=== PATIENT | male | born 1940 | race Caucasian/White ===

== ENCOUNTER 2020-01-22 09:21 | Emergency (ER) | payer MEDICARE ==
[2020-01-22] MEDS ORDERED: Sodium Chloride 0.9% 10 ML Syringe FLUSH PRN (09:43)
--- NOTE | 2020-01-22 09:43 | EDM.PDOC ---
ED HPI GENERAL MEDICAL PROBLEM - General Stated Complaint: DOESNT FEEL WELL Time Seen by Provider: 01/22/20 09:50 Source of Information: Reports: Patient, Family History Limitations: Reports: No Limitations - History of Present Illness INITIAL COMMENTS - FREE TEXT/NARRATIVE: Patient presented to the ED because he is not feeling well. He has a poor appetite and feels weak. Denies any fever,chills,cough/cold. There is no N/V/D. No urinary symptoms. - Related Data Allergies Allergy/AdvReac Type Severity Reaction Status Date / Time No Known Allergies Allergy Verified 01/22/20 09:42 Home Meds: Home Meds . [Unable to Verify Home Med List] 01/22/20 [History] ED ROS GENERAL - Review of Systems Review Of Systems: See Below Constitutional: Reports: No Symptoms HEENT: Reports: No Symptoms Respiratory: Reports: No Symptoms Cardiovascular: Reports: No Symptoms Endocrine: Reports: No Symptoms GI/Abdominal: Reports: No Symptoms : Reports: No Symptoms Musculoskeletal: Reports: No Symptoms Skin: Reports: No Symptoms Neurological: Reports: No Symptoms Psychiatric: Reports: No Symptoms Hematologic/Lymphatic: Reports: No Symptoms ED EXAM, GENERAL - Physical Exam Exam: See Below Exam Limited By: No Limitations General Appearance: Alert, No Apparent Distress Ears: Normal External Exam, Normal Canal, Hearing Grossly Normal Nose: Normal Inspection, Normal Mucosa Throat/Mouth: Normal Inspection, Normal Lips, Normal Teeth Head: Atraumatic, Normocephalic Neck: Normal Inspection, Supple, Non-Tender, Full Range of Motion Respiratory/Chest: No Respiratory Distress, Lungs Clear, Normal Breath Sounds Cardiovascular: Normal Peripheral Pulses, Regular Rate, Rhythm, No Edema, No Gallop, No JVD, No Murmur, No Rub GI/Abdominal: Normal Bowel Sounds, Soft, Non-Tender, No Organomegaly Back Exam: Normal Inspection, Full Range of Motion Extremities: Normal Inspection, Normal Range of Motion, Non-Tender Neurological: Alert, Oriented, CN II-XII Intact, Normal Cognition, Normal Gait Psychiatric: Normal Affect, Normal Mood Skin Exam: Warm, Intact, Normal Color, No Rash Course - Vital Signs Text/Narrative:: Labs/EKG/CXR was reviewed with the patient NS 1 L bolus in 2 hrs Last Recorded V/S: Last Vital Signs Temp 36.4 C 01/22/20 09:43 Pulse 73 01/22/20 09:43 Resp 14 01/22/20 09:43 BP 157/91 H 01/22/20 09:43 Pulse Ox 97 01/22/20 09:43 - Orders/Labs/Meds Orders: Active Orders 24 hr Category Date Time Status EKG Documentation Completion [RC] ASDIRECTED Care 01/22/20 09:44 Active Sodium Chloride 0.9% [Saline Flush] Med 01/22/20 09:43 Active 10 ml FLUSH ASDIRECTED PRN Saline Lock Insert [OM.PC] Routine Oth 01/22/20 09:43 Ordered EKG 12 Lead [EK] Routine Ther 01/22/20 09:44 Ordered Medication Orders Sodium Chloride (Saline Flush) 10 ml FLUSH ASDIRECTED PRN PRN Reason: Keep Vein Open Labs: Laboratory Tests 01/22/20 01/22/20 01/22/20 Range/Units 09:50 09:50 09:50 WBC 5.9 (4.5-12.0) X10-3/uL RBC 3.66 L (4.30-5.75) x10(6)uL Hgb 11.1 L (13.5-17.8) g/dL Hct 33.3 (30.0-51.3) % MCV 90.9 (80-96) fL MCH 30.2 (27.7-33.6) pg MCHC 33.2 (32.2-35.4) g/dL RDW 14.5 (11.5-15.5) % Plt Count 203 (125-369) X10(3)uL MPV 8.7 (7.4-10.4) fL Neut % (Auto) 69.3 (46-82) % Lymph % (Auto) 20.6 (13-37) % [place] % (Auto) 8.6 (4-12) % Eos % (Auto) 1 (1.0-5.0) % Baso % (Auto) 1 (0-2) % Neut # (Auto) 4.0 (1.6-8.3) # Lymph # (Auto) 1.2 (0.6-5.0) # [place] # (Auto) 0.5 (0.0-1.3) # Eos # (Auto) 0.1 (0.0-0.8) # Baso # (Auto) 0.0 (0.0-0.2) # Sodium 130 L (135-145) mmol/L Potassium 4.1 (3.5-5.3) mmol/L Chloride 94 L (100-110) mmol/L Carbon Dioxide 22 (21-32) mmol/L BUN 25 H (7-18) mg/dL Creatinine 1.1 (0.70-1.30) mg/dL Est Cr Clr Drug Dosing TNP Estimated GFR (MDRD) > 60 (>60) BUN/Creatinine Ratio 22.7 H (9-20) Glucose 93 (80-116) mg/dL Calcium 9.0 (8.6-10.2) mg/dL Total Bilirubin 1.4 H (0.1-1.3) mg/dL AST 57 H (5-25) IU/L ALT 102 H (12-36) U/L Alkaline Phosphatase 134 H (56-112) IU/L Troponin I 6.6 (4.0-60.3) pg/mL Total Protein 7.3 (6.0-8.0) g/dL Albumin 3.4 (3.2-4.6) g/dL Globulin 3.9 g/dL Albumin/Globulin Ratio 0.9 Meds: Medications Generic Name Dose Route Start Last Admin Trade Name Freq PRN Reason Stop Dose Admin Sodium Chloride 10 ml 01/22/20 09:43 Saline Flush FLUSH ASDIRECTED PRN Keep Vein Open Departure - Departure Time of Disposition: 12:30 Disposition: Home, Self-Care 01 Condition: Good Clinical Impression: Dehydration - Discharge Information Instructions: Dehydration, Elderly, [id number] Referrals: Kt Francois MD [Primary Care Provider] - Additional Instructions: please read discharge instructions on dehydration increase oral fluids to 2-3 liters a day follow up as needed Sepsis Event Note (ED) - Focused Exam Vital Signs: Vital Signs Temp Pulse Resp BP Pulse Ox 01/22/20 09:43 36.4 C 73 14 157/91 H 97 - My Orders Last 24 Hours: My Active Orders 01/22/20 09:43 Sodium Chloride 0.9% [Saline Flush] 10 ml FLUSH ASDIRECTED PRN Saline Lock Insert [OM.PC] Routine 01/22/20 09:44 EKG Documentation Completion [RC] ASDIRECTED EKG 12 Lead [EK] Routine - Assessment/Plan Last 24 Hours: My Active Orders 01/22/20 09:43 Sodium Chloride 0.9% [Saline Flush] 10 ml FLUSH ASDIRECTED PRN Saline Lock Insert [OM.PC] Routine 01/22/20 09:44 EKG Documentation Completion [RC] ASDIRECTED EKG 12 Lead [EK] Routine
--- NOTE | 2020-01-22 10:41 | CR ---
INDICATION: Cough. CHEST ONE VIEW: An AP upright portable view of the chest was obtained 01/22/20 - no comparison. Chest is rotated to the right. The heart did not appear grossly enlarged. The aorta is mildly tortuous with calcification in the arch. Overlying EKG leads are noted. Somewhat increased pulmonary markings are noted in the suprahilar area and hilar area on the right raising question of patchy pneumonia, possibly on the basis of aspiration. This should be correlated clinically. No gross consolidating pneumonia or effusion was identified. Apical pleural calcifications are noted compatible with pleural fibrosis bilaterally. Somewhat diminished bone density may be present raising question of osteoporosis. Scoliosis is difficult to exclude in the spine with hypertrophic degenerative changes of moderate degree also present. Lungs appear to be somewhat hyperaerated. IMPRESSION: 1. Increased markings on the right raise question of patchy bronchopneumonia possibly on the basis of aspiration, but should be correlated clinically. 2. ASD aorta. 3. Possible osteoporosis. 4. 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 MTDD
[2020-01-22] MEDS ORDERED: Sodium Chloride 0.9% 1,000 ML IV SCH (14:00)
== END 2020-01-22 12:35 | disposition home or self-care (01) ==
LOC: FB.ED 09:21
DX: E86.0 Dehydration (principal)
CPT/HCPCS: 36415; 71045; 80053; 84484; 85025; 93005; 96360; 96361; 99285; J7030

== ENCOUNTER 2020-02-19 17:20 | Observation (INO) | payer MEDICARE ==
[2020-02-19] MEDS ORDERED: Sodium Chloride 0.9% 10 ML Syringe FLUSH PRN (18:23)
[2020-02-19] MEDS ORDERED: Dextrose 5%-Lactated Ringers 1,000 ML IV SCH (18:30)
--- NOTE | 2020-02-19 19:06 | EDM.PDOC ---
ED HPI GENERAL MEDICAL PROBLEM - General Chief Complaint: General Stated Complaint: I was confused about text messages on my cell phone Time Seen by Provider: 02/19/20 18:30 Source of Information: Reports: Patient, Old Records History Limitations: Reports: No Limitations - History of Present Illness INITIAL COMMENTS - FREE TEXT/NARRATIVE: Luis returns to [facility] ED by EMS following concerns for cell phone messages that he had "40 unanswered text messages" read upon awakening from a nap. He was unable to retrieve any messages, and became alarmed for safety. Upon arrival, he is alert, orientated to person, place, month, year, and time of day. He appears disheveled, with some food spills on his overshirt. His fingernails and toenails are curled with debris on all extremities. He lives alone, has neighbors assist with transportation to do limited shopping, and does talk on the telephone. 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 He has not seen a physcian in over a year. - Related Data Allergies Allergy/AdvReac Type Severity Reaction Status Date / Time No Known Allergies Allergy Verified 02/19/20 17:32 Home Meds: Home Meds . [Unable to Verify Home Med List] 01/22/20 [History] Past Medical History - Past Health History Medical/Surgical History: Denies Medical/Surgical History Other Cardiovascular History: Pt is unclear of past medical history but was on metoprolol at one time Neurological History: Reports: Other (See Below) Other Neuro History: PATIENT STATES "IM CONFUSED" - Infectious Disease History Other Infectious Disease History: THINKS HE MIGHT HAVE HAD CHICKEN POX KID - Past Surgical History Head Surgeries/Procedures: Reports: None Neurological Surgical History: Reports: None Dermatological Surgical History: Reports: None Social & Family History - Caffeine Use Caffeine Use: Reports: None ED ROS GENERAL - Review of Systems Review Of Systems: See Below Constitutional: Reports: Malaise HEENT: Reports: No Symptoms Respiratory: Reports: No Symptoms Cardiovascular: Reports: No Symptoms Endocrine: Reports: No Symptoms GI/Abdominal: Reports: No Symptoms : Reports: Frequency, Incontinence Musculoskeletal: Reports: Muscle Stiffness Skin: Reports: No Symptoms Neurological: Reports: Confusion Psychiatric: Reports: Confusion Hematologic/Lymphatic: Reports: No Symptoms Immunologic: Reports: No Symptoms ED EXAM, GENERAL - Physical Exam Exam: See Below Exam Limited By: No Limitations General Appearance: Alert, WD/WN, No Apparent Distress, Thin Eye Exam: Bilateral Eye: EOMI, Normal Inspection, PERRL Ears: Normal External Exam Nose: Normal Inspection Throat/Mouth: No Airway Compromise, Other (caried teeth, chronic gingivitis) Head: Normocephalic Neck: Normal Inspection, Supple, Non-Tender Respiratory/Chest: Lungs Clear, Chest Non-Tender Cardiovascular: Regular Rate, Rhythm, No Murmur GI/Abdominal: Normal Bowel Sounds, Soft, Non-Tender, No Organomegaly, No Distention, No Mass (Male) Exam: No Hernia, Normal Inspection, Normal Prostate Rectal (Males) Exam: Normal Exam, Normal Rectal Tone, Prostate Normal Back Exam: Normal Inspection Extremities: Limited Range of Motion Neurological: Alert, Oriented, CN II-XII Intact, No Motor/Sensory Deficits, Slow to Respond, Other (latency) Psychiatric: Flat Affect Skin Exam: Other (debris of hands and feet with deformed nails from neglect) Lymphatic: No Adenopathy Course - Vital Signs Text/Narrative:: Following assessment, an IV was started in the RUE, and 2 L of D5LR was administered over the next 3 hours; following screening lab work noted improvement in LFTs, no change in CBC, Covid 19 screen NEG. A noncontrast Head CT noted age related changes, no findings for CVA or hemorrhage, and no space occupying lesion. Following discussion with patient in the absence of any relatives available, he will be admitted to Observation. A Social Service consult for services should be considered in the am. Last Recorded V/S: Last Vital Signs Temp 35.1 C L 02/19/20 17:20 Pulse 88 02/19/20 17:20 Resp 18 02/19/20 17:20 BP 154/92 H 02/19/20 17:20 Pulse Ox 100 02/19/20 17:20 - Orders/Labs/Meds Orders: Active Orders 24 hr Category Date Time Status Patient Status Manage Transfer [TRANSFER] Routine ADT 02/19/20 21:04 Ordered Head wo Cont [CT] Urgent Exams 02/19/20 19:12 Taken DRUG SCREEN, URINE ALERE [URCHEM] Stat Lab 02/19/20 18:22 Ordered UA W/MICROSCOPIC [URIN] Stat Lab 02/19/20 18:22 Ordered Dextrose 5%-Lactated Ringers 1,000 ml Med 02/19/20 18:30 Active IV ASDIRECTED Sodium Chloride 0.9% [Saline Flush] Med 02/19/20 18:23 Active 10 ml FLUSH ASDIRECTED PRN Peripheral IV Insertion Adult [OM.PC] Routine Oth 02/19/20 18:23 Ordered Medication Orders Dextrose/Lactated Ringer's (Dextrose 5%-Lactated Ringers) 1,000 mls @ 500 mls/hr IV ASDIRECTED ANITA Last Admin: 02/19/20 19:40 Dose: 500 mls/hr Documented by: MELITA Sodium Chloride (Saline Flush) 10 ml FLUSH ASDIRECTED PRN PRN Reason: Keep Vein Open Labs: Laboratory Tests 02/19/20 02/19/20 02/19/20 Range/Units 17:55 17:55 17:55 WBC 5.6 (4.5-12.0) X10-3/uL RBC 3.39 L (4.30-5.75) x10(6)uL Hgb 10.4 L (13.5-17.8) g/dL Hct 30.7 (30.0-51.3) % MCV 90.6 (80-96) fL MCH 30.8 (27.7-33.6) pg MCHC 34.0 (32.2-35.4) g/dL RDW 13.0 (11.5-15.5) % Plt Count 194 (125-369) X10(3)uL MPV 9.0 (7.4-10.4) fL Neut % (Auto) 68.8 (46-82) % Lymph % (Auto) 20.7 (13-37) % [place] % (Auto) 9.2 (4-12) % Eos % (Auto) 1 (1.0-5.0) % Baso % (Auto) 1 (0-2) % Neut # (Auto) 3.9 (1.6-8.3) # Lymph # (Auto) 1.2 (0.6-5.0) # [place] # (Auto) 0.5 (0.0-1.3) # Eos # (Auto) 0.0 (0.0-0.8) # Baso # (Auto) 0.0 (0.0-0.2) # Sodium 123 L (135-145) mmol/L Potassium 3.9 (3.5-5.3) mmol/L Chloride 90 L (100-110) mmol/L Carbon Dioxide 23 (21-32) mmol/L BUN 11 D (7-18) mg/dL Creatinine 1.0 (0.70-1.30) mg/dL Est Cr Clr Drug Dosing 56.70 mL/min Estimated GFR (MDRD) > 60 (>60) BUN/Creatinine Ratio 11.0 (9-20) Glucose 104 (80-116) mg/dL Calcium 8.6 (8.6-10.2) mg/dL Total Bilirubin 1.2 (0.1-1.3) mg/dL AST 30 H D (5-25) IU/L ALT 27 D (12-36) U/L Alkaline Phosphatase 114 H (56-112) IU/L Total Protein 6.6 (6.0-8.0) g/dL Albumin 3.1 L (3.2-4.6) g/dL Globulin 3.5 g/dL Albumin/Globulin Ratio 0.9 Ethyl Alcohol < 0.03 (<0.03) % SARS-CoV-2 RNA ([place]) (NEGATIVE) 02/19/20 Range/Units 19:05 WBC (4.5-12.0) X10-3/uL RBC (4.30-5.75) x10(6)uL Hgb (13.5-17.8) g/dL Hct (30.0-51.3) % MCV (80-96) fL MCH (27.7-33.6) pg MCHC (32.2-35.4) g/dL RDW (11.5-15.5) % Plt Count (125-369) X10(3)uL MPV (7.4-10.4) fL Neut % (Auto) (46-82) % Lymph % (Auto) (13-37) % [place] % (Auto) (4-12) % Eos % (Auto) (1.0-5.0) % Baso % (Auto) (0-2) % Neut # (Auto) (1.6-8.3) # Lymph # (Auto) (0.6-5.0) # [place] # (Auto) (0.0-1.3) # Eos # (Auto) (0.0-0.8) # Baso # (Auto) (0.0-0.2) # Sodium (135-145) mmol/L Potassium (3.5-5.3) mmol/L Chloride (100-110) mmol/L Carbon Dioxide (21-32) mmol/L BUN (7-18) mg/dL Creatinine (0.70-1.30) mg/dL Est Cr Clr Drug Dosing mL/min Estimated GFR (MDRD) (>60) BUN/Creatinine Ratio (9-20) Glucose (80-116) mg/dL Calcium (8.6-10.2) mg/dL Total Bilirubin (0.1-1.3) mg/dL AST (5-25) IU/L ALT (12-36) U/L Alkaline Phosphatase (56-112) IU/L Total Protein (6.0-8.0) g/dL Albumin (3.2-4.6) g/dL Globulin g/dL Albumin/Globulin Ratio Ethyl Alcohol (<0.03) % SARS-CoV-2 RNA ([place]) Negative (NEGATIVE) Meds: Medications Generic Name Dose Route Start Last Admin Trade Name Freq PRN Reason Stop Dose Admin Dextrose/Lactated Ringer's 1,000 mls @ 500 mls/hr 02/19/20 18:30 02/19/20 19:40 Dextrose 5%-Lactated Ringers IV 500 mls/hr ASDIRECTED ANITA Administration Sodium Chloride 10 ml 02/19/20 18:23 Saline Flush FLUSH ASDIRECTED PRN Keep Vein Open Departure - Departure Time of Disposition: 21:12 Disposition: Refer to Observation Condition: Fair Clinical Impression: Altered mental status, unspecified Qualifiers: Altered mental status type: transient alteration of awareness Qualified Code(s): R40.4 - Transient alteration of awareness - Discharge Information *PRESCRIPTION DRUG MONITORING PROGRAM REVIEWED*: Not Applicable *COPY OF PRESCRIPTION DRUG MONITORING REPORT IN PATIENT CAROLYNN: Not Applicable Referrals: PCP,None [Primary Care Provider] - Forms: ED Department Discharge Sepsis Event Note (ED) - Evaluation Sepsis Screening Result: No Definite Risk - Focused Exam Vital Signs: Vital Signs Temp Pulse Resp BP Pulse Ox 02/19/20 17:20 35.1 C L 88 18 154/92 H 100 - Problem List & Annotations (1) Altered mental status, unspecified SNOMED Code(s): 915388388 Code(s): R41.82 - ALTERED MENTAL STATUS, UNSPECIFIED Status: Acute Current Visit: Yes Annotation/Comment:: Admit to Observation. Qualifiers: Altered mental status type: transient alteration of awareness Qualified Code(s): R40.4 - Transient alteration of awareness - Problem List Review Problem List Initiated/Reviewed/Updated: Yes - My Orders Last 24 Hours: My Active Orders 02/19/20 18:22 DRUG SCREEN, URINE ALERE [URCHEM] Stat UA W/MICROSCOPIC [URIN] Stat 02/19/20 18:23 Sodium Chloride 0.9% [Saline Flush] 10 ml FLUSH ASDIRECTED PRN Peripheral IV Insertion Adult [OM.PC] Routine 02/19/20 18:30 Dextrose 5%-Lactated Ringers 1,000 ml IV ASDIRECTED 02/19/20 19:12 Head wo Cont [CT] Urgent 02/19/20 21:04 Patient Status Manage Transfer [TRANSFER] Routine - Assessment/Plan Last 24 Hours: My Active Orders 02/19/20 18:22 DRUG SCREEN, URINE ALERE [URCHEM] Stat UA W/MICROSCOPIC [URIN] Stat 02/19/20 18:23 Sodium Chloride 0.9% [Saline Flush] 10 ml FLUSH ASDIRECTED PRN Peripheral IV Insertion Adult [OM.PC] Routine 02/19/20 18:30 Dextrose 5%-Lactated Ringers 1,000 ml IV ASDIRECTED 02/19/20 19:12 Head wo Cont [CT] Urgent 02/19/20 21:04 Patient Status Manage Transfer [TRANSFER] Routine Plan: Hospitalist to see in theam.
[2020-02-19] MEDS ORDERED: Acetaminophen 325 MG Tab PO PRN (21:13)
[2020-02-19] MEDS: Dextrose 5%-Lactated Ringers 1,000 ML IV SCH (23:07)
[2020-02-20] MEDS: Dextrose 5%-Lactated Ringers 1,000 ML IV SCH (04:27)
--- NOTE | 2020-02-20 11:48 | HP ---
ADMISSION DATE: 02/19/2020 CHIEF COMPLAINT: "Feeling uncomfortable." HISTORY OF PRESENT ILLNESS: Luis Lara is an 79-year-old single male, [place] resident, was seen first at [facility] ER by Dr. Jair Rizvi. He was brought by ambulance "not feeling comfortable." He was concerned about his safety, he was unable to retrieve any of his unanswered text messages. When seen in the ER, he was disheveled, unkept, had been lacking general hygiene including hair and benoit issues and toenail care. Weight appeared to be decreased. Medications at the time of admission uncertain, but thought to be simply a dose of metoprolol and a multiple vitamin. PAST MEDICAL HISTORY: Significant for no previous operative procedures, hospitalizations, unusual childhood diseases, major injuries, or fractures. SOCIAL HISTORY: Lives independently in his home, by report a bit of a hoarder at home environment. 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 Lived with his mom through her later years. Nonsmoker. No alcohol. No illicit drug use. FAMILY HISTORY: Noncontributory. REVIEW OF SYSTEMS: CONSTITUTIONAL: States otherwise been feeling well. EYES: Sees well. EARS: Hears well. OROPHARYNX: Intact dentition. GASTROINTESTINAL: Bowels have been fine. No blood in the stools. No black tarry stools. GENITOURINARY: Voiding comfortably. Nocturia x1. CARDIOVASCULAR: Denies chest pain, palpitations, or syncope. RESPIRATORY: No chronic cough, wheeze, or congestion. SKIN: No lesions, eruptions, or moles. ENDOCRINE: No excessive thirst or urination. ALLERGIES: None. ORTHOPEDIC: General aches and pains. PSYCHIATRIC: Mood stable. PHYSICAL EXAMINATION: VITAL SIGNS: 36.4, 69, 132/86, 14, and 100. GENERAL: Soft spoken, speech was a bit gated but accurate. He was orientated to time, place, and person. HEENT: Funduscopic benign. Conjunctivae clear. Bright tympanic membranes. Clear nasal discharge. Mouth and oropharynx clear. NECK: Benign. Thyroid small. CHEST: On auscultation, clear all lung florian. HEART: On auscultation, no ectopy or murmur. ABDOMEN: Benign. Scaphoid. No abdominal masses. Midline aorta small. and RECTAL: Deferred. EXTREMITIES: Well perfused. Complicated lengthy toenails toenails. EXTREMITIES: Otherwise, well perfused. Mild venous stasis changes. LABORATORY STUDIES: White count 5,600, hemoglobin 10.4, normal indices. Platelets 294,000. Electrolytes: Sodium 133, chloride 90, GFR greater than 60. Mildly elevated AST, 5 to 25, his was 30; alkaline phosphatase 114, normal is 56 to 112. Urine revealed marked glucosuria. Toxicology screen was negative. COVID was unremarkable. Ethyl alcohol 0.3, glucose was 104. ASSESSMENT: Acute change in mental status. PLAN: CT head was reviewed by myself; revealed some microvascular changes and some atrophy, but nothing pathologic. Radiologist's report to follow. We will observe, recheck his sodium today, expectation of discharge home, caregiving services to be considered. /[id number] GI/ABA
--- NOTE | 2020-02-21 11:00 | DISCH ---
DISCHARGE DATE: 02/20/2020 DIAGNOSIS: Acute confusional state. HOSPITAL COURSE: Luis Lara is an 79-year-old male admitted with a sense of unsteadiness, confusion, and distractibility. Please see HPI. CT of the head was within normal limits. Laboratory studies revealed low sodium at 123. The patient states "sodium is always low." Other laboratory studies were fine. CT by my interpretation was normal, report per Radiology pending. He was up. He has ambulated, was comfortable, was oriented and without complicating issue. Discharge exam was satisfactory as were vital signs. Followup appointment with Dr. Francois in 1 week's time, certain to have a panel 8 at that time. Discharge medications describes as being on metoprolol, though he has not filled it since June 2018. Followup appointment with Dr. Francois as planned. /[id number] GI/ABA
== END 2020-02-20 14:20 | disposition home or self-care (01) ==
LOC: FB.ED 17:20 → FB.MS 21:17
PROVIDERS: ADMIT Family Medicine; ATTEND Family Medicine
DX: R41.0 Disorientation, unspecified (principal); Z23 Encounter for immunization; Z79.899 Other long term (current) drug therapy; Z20.828 Contact with and (suspected) exposure to other viral communicable diseases
CPT/HCPCS: 36415; 70450; 80048; 80053; 80305-QW; 80307; 81001; 85025; 90653; 96360; 96361; 99284; 99285-25; G0008; J7121; U0002

== ENCOUNTER 2020-02-21 16:11 | Inpatient (IN) | payer MEDICARE ==
[2020-02-21] MEDS ORDERED: Sodium Chloride 0.9% 1,000 ML IV SCH (16:30)
--- NOTE | 2020-02-21 16:52 | EDM.PDOC ---
ED HPI GENERAL MEDICAL PROBLEM - General Chief Complaint: Neuro Symptoms/Deficits Stated Complaint: altered mental status Time Seen by Provider: 02/21/20 16:15 Source of Information: Reports: Patient, EMS, Family, RN Notes Reviewed History Limitations: Reports: Altered Mental Status, Physical Impairment - History of Present Illness INITIAL COMMENTS - FREE TEXT/NARRATIVE: brought in by EMS Neighbor called as pt did no open his blinds as usual EMS could not get into house freely as there are a lot of hoarded things blocking everywhere he was found in his bedroom with stack of papers and things that seem to have fallen on him he was in a position , pressure on the right side and was unable to move freely Was admitted on Tuesday and discharged yesterday did walk home : into his house but today was unable to walk has swelling of left side of his body : face , arm, legs Blistered and burst blisters on the left upper arm deformed chest wall noted but pt is not short of breath pt unable to ambulate like he did yesterday Onset: Today Onset Date: 02/22/20 Duration: Getting Worse Associated Symptoms: Reports: Confusion, Loss of Appetite, Malaise, Weakness Treatments CLIENT SERVICE ADMINISTRATOR: Reports: See EMS Report - Related Data Allergies Allergy/AdvReac Type Severity Reaction Status Date / Time No Known Allergies Allergy Verified 02/21/20 17:10 Home Meds: Home Meds NK [No Known Home Meds] 02/20/20 [History] Past Medical History - Past Health History Medical/Surgical History: Denies Medical/Surgical History Other Cardiovascular History: Pt is unclear of past medical history but was on metoprolol at one time Neurological History: Reports: Other (See Below) Other Neuro History: PATIENT STATES "IM CONFUSED" - Infectious Disease History Other Infectious Disease History: THINKS HE MIGHT HAVE HAD CHICKEN POX KID - Past Surgical History Head Surgeries/Procedures: Reports: None Neurological Surgical History: Reports: None Dermatological Surgical History: Reports: None Social & Family History - Family History Family Medical History: Noncontributory - Caffeine Use Caffeine Use: Reports: None Other Caffeine Use: OCCASIONALLY DRINKS COFFEE ED ROS GENERAL - Review of Systems Review Of Systems: Unable To Obtain Reason Not Obtained: pt not able to give good history , denies any pain - Physical Exam Exam: See Below Exam Limited By: Altered Mental Status General Appearance: Alert, Lethargic, Thin Eye Exam: Bilateral Eye: EOMI Ears: Normal Canal Nose: Normal Inspection Throat/Mouth: Normal Inspection, Normal Oropharynx (moist membrane) Head Exam: Atraumatic, Normocephalic Neck: Limited Range of Motion Respiratory/Chest: Other (chest deformity , collapsed left rib cage ) Cardiovascular: Regular Rate, Rhythm, Other (edema both lower extremities) Neuro Exam (Abbreviated): Alert, Slow to Respond, Memory Loss Recent Events Back Exam: No: CVA Tenderness (R), CVA Tenderness (L) Extremities: Slow Capillary Refill, Joint Swelling (left elbow), Mottled Psychiatric: Depressed Mood, Flat Affect Skin Exam: Decubitus (left forearm) Course - Vital Signs Last Recorded V/S: Last Vital Signs Temp 36.6 C 02/22/20 04:00 Pulse 79 02/22/20 04:00 Resp 16 02/22/20 04:00 BP 112/69 02/22/20 04:00 Pulse Ox 95 02/22/20 04:00 - Orders/Labs/Meds Orders: Active Orders 24 hr Category Date Time Status Patient Status [ADT] Routine ADT 02/21/20 19:07 Active Ambulate [RC] PER UNIT ROUTINE Care 02/21/20 19:07 Active Antiembolic Devices [RC] .Routine Care 02/21/20 19:09 Active Height and Weight [RC] 0600 Care 02/21/20 19:07 Active Intake and Output [RC] 22,06,14 Care 02/21/20 19:10 Active Pulse Oximetry [RC] PRN Care 02/21/20 19:07 Active Up With Assistance [RC] ASDIRECTED Care 02/21/20 19:07 Active VTE/DVT Education [RC] Click to Edit Care 02/21/20 19:09 Active Vital Signs [RC] 00,04,08,12,16,20 Care 02/21/20 19:07 Active Regular Diet [DIET] Diet 02/22/20 Breakfast Ordered CK, TOTAL+ISOENZYMES, SERUM Stat Lab 02/21/20 17:55 Received CULTURE BLOOD [BC] Stat Lab 02/21/20 17:55 Received MYOGLOBIN, SERUM Stat Lab 02/21/20 17:55 Received Acetaminophen [TylenoL] Med 02/21/20 19:07 Active 650 mg PO Q4H PRN Magnesium Hydroxide [Milk of Magnesia] Med 02/21/20 19:07 Active 30 ml PO BID PRN DVT/VTE Prophylaxis Reflex [OM.PC] Per Unit Routine Oth 02/21/20 19:07 Ordered Resuscitation Status Routine Resus Stat 02/21/20 19:07 Ordered Medication Orders Acetaminophen (Tylenol) 650 mg PO Q4H PRN PRN Reason: analgesia/fever Furosemide (Lasix) 40 mg PO BIDDIURETIC ANITA Last Admin: 02/22/20 08:19 Dose: 40 mg Documented by: MELIDA Magnesium Hydroxide (Milk Of Magnesia) 30 ml PO BID PRN PRN Reason: Constipation Labs: Laboratory Tests 02/21/20 02/21/20 02/21/20 Range/Units 17:55 17:55 17:55 WBC 12.9 H (4.5-12.0) X10-3/uL RBC 4.24 L (4.30-5.75) x10(6)uL Hgb 12.9 L (13.5-17.8) g/dL Hct 38.2 (30.0-51.3) % MCV 90.2 (80-96) fL MCH 30.4 (27.7-33.6) pg MCHC 33.7 (32.2-35.4) g/dL RDW 13.1 (11.5-15.5) % Plt Count 227 (125-369) X10(3)uL PT 13.4 H (9.0-11.1) sec INR 1.26 H (1.00-1.24) Sodium 122 L (135-145) mmol/L Potassium 4.1 (3.5-5.3) mmol/L Chloride 88 L* (100-110) mmol/L Carbon Dioxide 22 (21-32) mmol/L BUN 11 (7-18) mg/dL Creatinine 1.0 (0.70-1.30) mg/dL Est Cr Clr Drug Dosing 45.36 mL/min Estimated GFR (MDRD) > 60 (>60) BUN/Creatinine Ratio 11.0 (9-20) Glucose 110 (80-116) mg/dL Lactic Acid (0.4-2.0) mmol/L Calcium 8.4 L (8.6-10.2) mg/dL Total Bilirubin 1.8 H (0.1-1.3) mg/dL AST 213 H* D (5-25) IU/L ALT 54 H D (12-36) U/L Alkaline Phosphatase 110 (56-112) IU/L Troponin I (4.0-60.3) pg/mL NT-Pro-B Natriuret Pep (<=450) pg/mL Total Protein 6.7 (6.0-8.0) g/dL Albumin 2.9 L (3.2-4.6) g/dL Globulin 3.8 g/dL Albumin/Globulin Ratio 0.8 02/21/20 02/21/20 02/21/20 Range/Units 17:55 17:55 17:55 WBC (4.5-12.0) X10-3/uL RBC (4.30-5.75) x10(6)uL Hgb (13.5-17.8) g/dL Hct (30.0-51.3) % MCV (80-96) fL MCH (27.7-33.6) pg MCHC (32.2-35.4) g/dL RDW (11.5-15.5) % Plt Count (125-369) X10(3)uL PT (9.0-11.1) sec INR (1.00-1.24) Sodium (135-145) mmol/L Potassium (3.5-5.3) mmol/L Chloride (100-110) mmol/L Carbon Dioxide (21-32) mmol/L BUN (7-18) mg/dL Creatinine (0.70-1.30) mg/dL Est Cr Clr Drug Dosing mL/min Estimated GFR (MDRD) (>60) BUN/Creatinine Ratio (9-20) Glucose (80-116) mg/dL Lactic Acid 1.5 (0.4-2.0) mmol/L Calcium (8.6-10.2) mg/dL Total Bilirubin (0.1-1.3) mg/dL AST (5-25) IU/L ALT (12-36) U/L Alkaline Phosphatase (56-112) IU/L Troponin I 46.8 (4.0-60.3) pg/mL NT-Pro-B Natriuret Pep 68216 H* (<=450) pg/mL Total Protein (6.0-8.0) g/dL Albumin (3.2-4.6) g/dL Globulin g/dL Albumin/Globulin Ratio Meds: Medications Generic Name Dose Route Start Last Admin Trade Name David PRN Reason Stop Dose Admin Acetaminophen 650 mg 02/21/20 19:07 Tylenol PO Q4H PRN analgesia/fever Furosemide 40 mg 02/22/20 08:00 02/22/20 08:19 Lasix PO 40 mg BIDDIURETIC ANITA Administration Magnesium Hydroxide 30 ml 02/21/20 19:07 Milk Of Magnesia PO BID PRN Constipation Discontinued Medications Generic Name Dose Route Start Last Admin Trade Name Freq PRN Reason Stop Dose Admin Sodium Chloride 1,000 mls @ 125 mls/hr 02/21/20 16:30 Normal Saline IV ASDIRECTED ANITA Ceftriaxone Sodium 1 gm/ 50 mls @ 200 mls/hr 02/21/20 18:24 02/21/20 19:28 Sodium Chloride IV 02/21/20 18:38 200 mls/hr ONETIME ONE Administration Azithromycin 500 mg/ Sodium 250 mls @ 250 mls/hr 02/21/20 18:24 02/21/20 19:45 Chloride IV 02/21/20 19:23 250 mls/hr ONETIME ONE Administration Sodium Chloride 250 mls @ 250 mls/hr 02/21/20 19:06 02/21/20 20:47 Normal Saline IV 02/21/20 20:05 Not Given .BOLUS ONE Sodium Chloride 250 mls @ 999 mls/hr 02/21/20 18:35 02/21/20 19:10 Normal Saline IV 02/21/20 18:50 999 mls/hr .BOLUS ONE Administration Departure - Departure Time of Disposition: 19:55 Disposition: Admitted As Inpatient 65 Clinical Impression: Adult failure to thrive syndrome, Cellulitis of upper arm and forearm, Pneumonia - Discharge Information *PRESCRIPTION DRUG MONITORING PROGRAM REVIEWED*: Not Applicable *COPY OF PRESCRIPTION DRUG MONITORING REPORT IN PATIENT CAROLYNN: Not Applicable - My Orders Last 24 Hours: My Active Orders 02/21/20 17:55 CK, TOTAL+ISOENZYMES, SERUM Stat CULTURE BLOOD [BC] Stat MYOGLOBIN, SERUM Stat 02/21/20 19:07 Patient Status [ADT] Routine Ambulate [RC] PER UNIT ROUTINE Height and Weight [RC] 0600 Pulse Oximetry [RC] PRN Up With Assistance [RC] ASDIRECTED Vital Signs [RC] 00,04,08,12,16,20 Acetaminophen [TylenoL] 650 mg PO Q4H PRN Magnesium Hydroxide [Milk of Magnesia] 30 ml PO BID PRN DVT/VTE Prophylaxis Reflex [OM.PC] Per Unit Routine Resuscitation Status Routine 02/21/20 19:09 Antiembolic Devices [RC] .Routine VTE/DVT Education [RC] Click to Edit 02/21/20 19:10 Intake and Output [RC] ,,02/22/20 Breakfast Regular Diet [DIET] - Assessment/Plan Last 24 Hours: My Active Orders 02/21/20 17:55 CK, TOTAL+ISOENZYMES, SERUM Stat CULTURE BLOOD [BC] Stat MYOGLOBIN, SERUM Stat 02/21/20 19:07 Patient Status [ADT] Routine Ambulate [RC] PER UNIT ROUTINE Height and Weight [RC] 0600 Pulse Oximetry [RC] PRN Up With Assistance [RC] ASDIRECTED Vital Signs [RC] 00,04,08,12,16,20 Acetaminophen [TylenoL] 650 mg PO Q4H PRN Magnesium Hydroxide [Milk of Magnesia] 30 ml PO BID PRN DVT/VTE Prophylaxis Reflex [OM.PC] Per Unit Routine Resuscitation Status Routine 02/21/20 19:09 Antiembolic Devices [RC] .Routine VTE/DVT Education [RC] Click to Edit 02/21/20 19:10 Intake and Output [RC] ,,14 02/22/20 Breakfast Regular Diet [DIET]
[2020-02-21] MEDS ORDERED: cefTRIAXone 1 GM in Sodium Chloride 0.9% 50 ML IV ONE (18:24)
[2020-02-21] MEDS ORDERED: Sodium Chloride 0.9% 250 ML IV ONE (18:35)
[2020-02-21] MEDS ORDERED: Acetaminophen 325 MG Tab PO PRN (19:07)
[2020-02-21] MEDS ORDERED: Magnesium Hydroxide 400 MG/5 ML Susp 30 ML Cup PO PRN (19:07)
[2020-02-21] MEDS: Sodium Chloride 0.9% 250 ML IV ONE ×2 (19:10→20:47)
[2020-02-21] MEDS: Azithromycin 500 MG in Sodium Chloride 0.9% 250 ML IV ONE ×2 (19:40→19:45)
--- NOTE | 2020-02-21 20:01 | CT ---
INDICATION: Fall, confusion. CT HEAD WITHOUT CONTRAST: Spiral 3.75 mm axial sections were obtained through the brain without contrast with axial, sagittal, and coronal reconstructions 02/21/20 and compared with 02/19/20. Total exam DLP was 1476.93 mGy-cm. Degenerative changes are noted at the odonto-atlantian joint. Calcifications are noted at the vertebral and internal carotid arteries. Retention cysts are again noted times two in the left maxillary antrum with the paranasal sinuses and mastoid air cells otherwise fairly well aerated. No cranial fracture site was identified. Low density abnormality surrounds the teeth of two left maxillary teeth raising question of abscess formation in that area. A low density abnormality in the right basal ganglia is again present and may represent a tiny lacunar infarct. There is some minimal periventricular decrease in density suggesting mild microvascular disease. The cortical sulci were prominent in the frontoparietal area compatible with cortical atrophy. Ventricles are prominent compatible with central atrophy. No bleeding site or hematoma was suggested. Orbits appear to be intact. IMPRESSION: 1. Cerebrovascular disease with arterial calcifications and minimal low density abnormality periventricular in location compatible with mild microvascular disease. 2. Generalized atrophy. 3. No definite acute intracranial abnormality. 4. Tiny right basal ganglia lacunar infarct age indeterminate but present on the previous examination of 02/19/20. MTDD
--- NOTE | 2020-02-21 20:12 | CT ---
INDICATION: Fall, question rib fractures. CT CHEST WITHOUT CONTRAST: 3.75 mm axial sections were obtained through the chest with sagittal, coronal, and transaxial reconstructions 02/21/20 - no comparison. Total exam DLP was 321.07 mGy-cm. Apical scarring with calcifications is noted bilaterally. Accentuated dorsal kyphosis is noted with bridging hyperostotic changes in the upper through lower middle and to a lesser extent lower thoracic spine. Vertebral body and disc heights were fairly well maintained, however. The xiphoid and manubrium as well as the sternum appear to be intact. No definite rib fracture was identified. Dextroconcave scoliosis of the thoracic spine is noted. The thorax is somewhat deformed which likely is developmental. No definite displaced rib fracture site was identified. Calcifications are noted in the abdominal aorta, coronary arteries, arch of the aorta. No mediastinal mass was seen. The heart did not appear enlarged. The pericardium is somewhat thickened raising question of pericarditis either present or previous or minimal pericardial effusion. With the appearance in the apical lung, likely fibrotic in nature, it is difficult to entirely exclude a neoplastic process without previous examinations. Followup may be warranted. Bilateral small pleural effusions are noted, larger on the right than left which could be on the basis of pneumonia and pleuritis with some very minimal infiltrate at the right lung base and no definite infiltrate at the left lung base. A definite mass is not identified in the lung although, as mentioned above, it is difficult to entirely exclude neoplasia in the apices without previous studies. There is some pleuroparenchymal change at the middle lobe which may represent fibrosis or possibly minimal pneumonia with pleural reaction locally. Findings strongly suggestive of contusion were not identified. No evidence of pneumothorax was identified. IMPRESSION: 1. No definite acute rib fracture site - correlate clinically. 2. ASHD/ASD. 3. Bilateral pleural effusions larger on the right with some minimal infiltrate at the right lung base, most prominent at the right lower lobe. 4. Deformity of the thorax, likely developmental with scoliosis and bridging hyperostotic degenerative changes with kyphosis of the thoracic spine. 5. Slightly thickened pericardium which could represent previous or minimal current pericarditis or minimal pericardial effusion. Reports were called to Dr. Shelton at 1745 hours. [facility]
--- NOTE | 2020-02-21 20:16 | US ---
INDICATION: Swollen left upper extremity, question DVT. DUPLEX ULTRASOUND LEFT UPPER EXTREMITY VEINS: Utilizing 2D real-time duplex Doppler spectral analysis and color flow imaging examination of the axillary, subclavian, brachial, and basilic veins was obtained. Cephalic was not adequately visualized. No abnormal compression or phasicity was identified to suggest deep venous thrombosis. Study is somewhat limited. Interstitial edema is noted at the elbow raising question of injury in that area or even infection - correlate clinically. IMPRESSION: 1. No evidence of deep venous thrombosis as visualized but somewhat limited study. 2. Interstitial fluid noted at the elbow compatible with either injury or infection - correlate clinically. Report was called to Dr. Shelton at 1745 hours. [facility]
--- NOTE | 2020-02-21 20:20 | CR ---
INDICATION: Fall on the left side. LEFT ELBOW: Three views of the left elbow were obtained 02/21/20 - no comparison. Soft tissue swelling is noted posteriorly which may be on the basis of previous trauma but should be correlated clinically. Fracture, dislocation or other acute bone or joint abnormality was not identified. Minimal degenerative hypertrophic change is noted at the medial elbow joint compartment. No evidence of joint effusion was seen. IMPRESSION: No acute fracture or dislocation - soft tissue swelling noted. MTDD
--- NOTE | 2020-02-21 20:23 | CR ---
INDICATION: Fall. LEFT SHOULDER: Four images of the left shoulder in three projections were obtained 02/21/20 - no comparison. Diminished bone density suggests osteoporosis. This should be correlated clinically. A definite fracture, dislocation or other acute bone or joint abnormality was not identified. Minimal hypertrophic degenerative change and possibly some loss of glenohumeral joint space is noted. IMPRESSION: No acute fracture or dislocation. 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 Reports were called to Dr. Shelton at 1745 hours. [facility]
--- NOTE | 2020-02-22 08:13 | HP ---
ADMISSION DATE: 02/21/2020 CHIEF COMPLAINT: falls and weakness. HISTORY OF PRESENT ILLNESS: Mr. Lara is an 79-year-old resident of [place] with a history of chronic essential hypertension, who came in for acute hospitalization after being seen in the emergency room on February 18. Evaluation revealed acute change in mental status. CT of the head was unremarkable, and he was discharged home. Yesterday, he was noted by a neighbor to not have closed his blinds in the evening as usual. The ambulance was summoned. He was brought to [place], where he was found to be generally weak, mildly confused with a slightly elevated white count. He is hyponatremic with a sodium of 122, and chest CT revealed pleural effusions consistent with congestive heart failure. The patient is examined in his bed this morning. He denies pain, fever, dyspnea, and does not report any abnormal symptoms. PAST MEDICAL HISTORY: He has been quite healthy but has had longstanding mild hypertension. No other major medical problems. MEDICATIONS: He has not been taking any. ALLERGIES: None. HABITS: Nonsmoker. FAMILY AND SOCIAL HISTORY: The patient has never been . He lives by himself and walked in with no close relatives. Next of kin is listed as a neighbor in [place]. REVIEW OF SYSTEMS: GENERAL: No seizures. Apparent syncope. He has had a significant weight loss over the past few months according to his history. No fever, chills, sweats. CARDIOPULMONARY: No cough or purulent sputum. No chest pain or palpitations. GASTROINTESTINAL: No abdominal pain, nausea, or diarrhea. MUSCULOSKELETAL: No joint inflammation, swelling, or skin rash. GENITOURINARY: No hematuria or UTI symptoms. PSYCHIATRIC: No mood instability. ENDOCRINE: Temperature intolerance. PHYSICAL EXAMINATION: GENERAL: He is pale and thin, but does answer questions appropriately. VITAL SIGNS: Blood pressure 112/69, pulse 79 and regular, respirations 16, O2 saturation 95% on room air, temperature 98. Weight 130 pounds. SKIN: Anicteric. Warm and dry. He does have some bruises about his upper extremities. No major trauma noted. HEENT: Mouth is dry. LUNGS: Clear with good air movement to the bases. HEART: Regular without murmur, rub, or gallop. ABDOMEN: Normal bowel sounds. Soft and nontender. No masses or organomegaly. EXTREMITIES: Show trace edema of the malleoli. LABORATORY DATA: White count 12,900 and hemoglobin 12.9. Sodium 122, potassium 4.1, BUN 11, creatinine 1.0, and calcium 8.4. ProBNP 10,000. Urinalysis is unremarkable. ASSESSMENT: 1. Generalized weakness, fall, and mild confusion with hyponatremia. 2. History of hypertension. 3. Pleural effusions and elevated BNP consistent with congestive heart failure. PLAN: He is admitted to the hospital. He was started on IV antibiotics in the emergency room for potential pneumonia. I will repeat chest x-ray. Diurese him with furosemide. Anticipate a 48- to 72-hour acute hospital stay with plans for return to home once improved. /[id number] TERESA/ABA
[2020-02-22] MEDS: Furosemide 40 MG Tab PO SCH ×2 (08:19→14:23)
--- NOTE | 2020-02-22 12:34 | CR ---
INDICATION: Pleural effusions. CHEST, ONE VIEW: An AP upright wheelchair view of the chest was obtained 02/22/20 and compared with 01/22/20. Findings compatible with pulmonary fibrosis and COPD are noted. No evidence of pleural effusion was seen. The heart did not appear grossly enlarged. The aorta is minimally tortuous. Dextroconvex rotoscoliosis is noted at the thoracolumbar spine. IMPRESSION: 1. No acute process. 2. COPD. 3. Probable mild pulmonary fibrosis at the lung bases with pulmonary markings similar to the previous study. 4. The appearance of COPD appears to be exacerbated with increased flattening of diaphragm leaves - compared with 01/22/20. MTDD
[2020-02-22] MEDS ORDERED: Sodium Chloride 3% 500 ML IV SCH (20:00)
[2020-02-23] MEDS: Furosemide 40 MG Tab PO SCH (08:00)
--- NOTE | 2020-02-24 05:51 | PN ---
DATE SEEN: 02/23/2020 HISTORY: Luis is an 79-year-old man who was admitted overnight to observation care because of weakness and a fall at home. After overnight observation, he was discharged to home the next day. However, that evening, a neighbor noted an abnormal situation in his home where he did not turn the lights out, draw the curtains, etc., so on checking on him, he was found to be on the floor. He was brought back by ambulance and admitted from the ER. A CT of the head revealed some microvascular changes and old basal gangliar lacunar infarct and no acute findings. Physical evaluation suggested some weakness in the right lower extremity and a declined mental status with confusion. Admission laboratory showed his white count to be up to 12,900. INR 1.26. Sodium 122, BUN 11, creatinine 1, and a BNP of nearly 11,000. Chest x-ray was clear. He was diuresed and his sodium was replaced with 3% saline overnight and this morning he is much more bright and alert. His mental status is back to normal. PHYSICAL EXAMINATION: VITAL SIGNS: Blood pressure 191/65, pulse 84 and regular, respirations 16, O2 saturation 96% on room air, temperature 97.8. Weight 130 pounds. SKIN: Shows no rash or trauma. MOUTH: Dry. LUNGS: Clear to the bases. HEART: Regular without murmur or gallop. ABDOMEN: Soft, nontender. EXTREMITIES: Show no edema at the ankles. LABORATORY DATA: Sodium 134, potassium 3.5, BUN 25, creatinine 1.4. CRP 13.6. ASSESSMENT: 1. Confusion, fall, decline in mental status, metabolic, doubt significant new cerebral infarct. 2. 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 3. Elevated BNP. No evidence of acute congestive heart failure. PLAN: His furosemide is discontinued. We will have physical therapy continue to work with him and reassess for any focal weakness suggesting acute stroke. Plans are for him to return to home once well enough for discharge. /[id number] TERESA/ABA
--- NOTE | 2020-02-25 07:01 | PN ---
DATE SEEN: 02/24/2020 HISTORY: Luis is an 79-year-old man who was admitted with falls and weakness. He was found to be significantly hyponatremic and on physical therapy evaluation he has been unable to walk, apparently dragging his left leg. Luis denies any focal weakness. He denies any pain and does not have a good recollection of what happened to him at home when he was found on the floor. He is examined sitting in a chair. He has finished his breakfast and states he had a good appetite. PHYSICAL EXAM: VITAL SIGNS: Blood pressure 113/61, pulse 82, respirations 16, O2 saturation 100% on room air, temperature 98.4, and weight 127 pounds. SKIN: Shows ecchymoses over left arm as before. No rash is noted. MOUTH: Dry. LUNGS: Clear to the bases. HEART: Regular without murmur or gallop. ABDOMEN: Soft and nontender. EXTREMITIES: Show no edema. NEUROLOGIC: Reveals him to have mild confusion and poor memory for details. Motor exam reveals a slight dorsiflexion weakness in the left wrist compared to the right, this is quite subtle however. He has an essentially complete foot drop on the left with lack of dorsiflexion and normal function on the right. Leg extension at the knee appears symmetric. ASSESSMENT: 1. 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 2. Hyponatremia, corrected. 3. History of hypertension. PLAN: We will continue his physical therapy. Follow up labs. Provide palliative care measures for his underlying problems. Mr. Lara may likely require additional care in the form of swing bed where we will continue palliative care measures as well. /[id number] TERESA/ABA
--- NOTE | 2020-02-25 11:55 | PN ---
DATE SEEN: 02/25/2020 HISTORY: Luis is an 79-year-old man who was admitted because of falls and weakness. He was found to have abrasions on the left lower and upper arms and weakness of his left foot. He had been unable to walk safely because of that. He has also had hyponatremia that was corrected with 3% saline and a markedly elevated proBNP. He was diuresed briefly, but chest x-ray was clear. PHYSICAL EXAMINATION: GENERAL: He is examined this morning in his chair. He is awake, alert, and answers questions. He is somewhat forgetful, however. VITAL SIGNS: Blood pressure 118/61, pulse 84, temp 98.3, weight 126 pounds. This is down from 130 pounds 4 days ago. HEENT: Shows throat to be dry. LUNGS: Clear. HEART: Regular. ABDOMEN: Soft. EXTREMITIES: Show no edema of the ankles. He has abrasion with slight erythema over his proximal left forearm and an abrasion with a quarter-sized ulceration in his upper left arm with surrounding pink erythema. ASSESSMENT: 1. Falls, weakness, and left footdrop consistent with a right cerebrovascular accident. 2. 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 3. History of hypertension. 4. Hyponatremia, resolved. 5. Mild cognitive deficits. PLAN: At this time, Luis will need further recuperation. We will plan discharge to swing bed for continued therapy with eventual plans to return home if he regains enough strength. We will continue to provide palliative care measures for his underlying medical condition as well. /[id number] TERESA/ABA
--- NOTE | 2020-02-25 14:34 | DISCH ---
DISCHARGE DATE: 02/25/2020 HISTORY: Luis is an 79-year-old man who was admitted from the ER after falls, weakness, and possible stroke with left-sided deficits. He was found to have abrasions over his upper extremity and a left footdrop. He had great difficulty walking over the weekend. He has improved slightly to ambulation, but requires further therapy. He is discharged to swing bed in stable condition and will have continued care there. /[id number] TERESA/ABA
[2020-02-25 17:08] LABS: CK-BB 0 % (0); CK-MB 1 % (0-3); CK-MM 99 % (97-100); MACRO TYPE 1 0 % (Not Observed); MACRO TYPE 2 0 % (Not Observed)
== END 2020-02-25 11:35 | disposition swing bed (61) | DRG 292 ==
LOC: FB.ED 16:11 → FB.MS 19:17
PROVIDERS: ADMIT Family Medicine; ATTEND Family Medicine
DX: L03.114 Cellulitis of left upper limb (principal); J18.9 Pneumonia, unspecified organism; R62.7 Adult failure to thrive; R60.9 Edema, unspecified; I11.0 Hypertensive heart disease with heart failure; E87.1 Hypo-osmolality and hyponatremia; J90 Pleural effusion, not elsewhere classified; I50.9 Heart failure, unspecified
CPT/HCPCS: 36415; 70450; 71045; 71250; 73030-LT; 73080-LT; 80048; 80053; 80069; 81001; 82550; 82552; 83605; 83874; 83880; 84484; 85025; 85027; 85610; 86140; 87040; 93970; 96365; 96375; 97161-GP; 97165-GO; 97530-GO; 99285-25; A9270-GY; J0456; J0696; J7030; J7050; J7131

== ENCOUNTER 2020-02-25 11:36 | Inpatient (IN) | payer MEDICARE ==
--- NOTE | 2020-02-25 15:00 | HP ---
ADMISSION DATE: 02/25/2020 HISTORY OF PRESENT ILLNESS: Mr. Lara is an 79-year-old resident of [place] who was admitted to Acute Care on 02/21/2020 because of falls and weakness. He was found on the floor in his bedroom, confused, unable to get up, with abrasions over his upper extremity and slightly over his knees. He was brought to the emergency room and admitted with weakness and gait deficits. Laboratory data include white count of 12,900 and a ProBNP of 10,000. Because of the high BNP, he was diuresed with furosemide. Chest x-ray came back without any evidence of severe CHF. He was given physical therapy and slowly improved such that, by the day of discharge, with assistance, he was able to ambulate. He is now admitted to swing bed for continued therapy with plans to return home as able. PAST MEDICAL HISTORY: See previous H and P. he also has a history of hypertension. REVIEW OF SYSTEMS: GENERAL: Negative for fever, chills, sweats, or symptoms of infection. No cough, dyspnea, chest pain, abdominal pain, diarrhea, swelling, or skin rash. PHYSICAL EXAMINATION: GENERAL: He is pale, but alert and oriented. He is a slightly poor historian, however. VITAL SIGNS: Blood pressure 118/61; pulse 84; temperature 98.3; and weight 126 pounds, this is down from his admission weight of 130 pounds. HEENT: Shows mouth to be dry. LUNGS: Clear to the bases. HEART: Regular without murmur or gallop. ABDOMEN: Soft and nontender. EXTREMITIES: He has abrasions with slight erythema over his left upper arm. NEUROLOGIC: Generalized weakness with a left footdrop. ASSESSMENT: An 79-year-old with: 1. Right cerebrovascular accident and left-sided deficits. 2. Hypertension. 3. Mild cognitive deficits. 4. History of hyponatremia. PLAN: He will receive physical and occupational therapy with the goals of getting him back to his home when able. We will continue to provide palliative care measures for his underlying medical problems as well. /[id number] TERESA/ABA
[2020-02-29 08:13] LABS: IRON BIND.CAP.(TIBC) 200 ug/dL (250-450); IRON SATURATION 22 % (15-55); IRON, SERUM 43 ug/dL (38-169); UIBC 157 ug/dL (111-343)
--- NOTE | 2020-03-02 08:02 | PCM.PN ---
- General Info Date of Service: 03/02/20 Admission Dx/Problem (Free Text): Patient states he is without concerns. The nurses are concerned because he was incontinent of urine. His last UA was negative. He states today that that's improved and is able to get the bathroom before he has some incontinence. He denies dysuria, pyuria, chest pain, shortness of breath, palpitations, fevers, chills. Says left leg is a little weak. - Patient Data Vitals - Most Recent: Last Vital Signs Temp 97.9 F 03/01/20 08:00 Pulse 71 03/01/20 08:00 Resp 16 03/01/20 08:00 BP 104/64 03/01/20 08:00 Pulse Ox 98 03/01/20 08:00 Weight - Most Recent: 126 lb - Exam General: Alert, Oriented, Cooperative Lungs: Clear to Auscultation, Normal Respiratory Effort Cardiovascular: Regular Rate, Regular Rhythm, No Murmurs Sepsis Event Note - Evaluation Sepsis Screening Result: No Definite Risk - Problem List & Annotations (1) CVA (cerebral vascular accident) SNOMED Code(s): 196796424 Code(s): I63.9 - CEREBRAL INFARCTION, UNSPECIFIED Status: Acute Current Visit: Yes (2) Hyponatremia SNOMED Code(s): 45023202 Code(s): E87.1 - HYPO-OSMOLALITY AND HYPONATREMIA Status: Acute Current Visit: Yes (3) HTN (hypertension) SNOMED Code(s): 25180789 Code(s): I10 - ESSENTIAL (PRIMARY) HYPERTENSION Status: Acute Current Visit: Yes (4) Adult failure to thrive syndrome SNOMED Code(s): 425146319 Code(s): R62.7 - ADULT FAILURE TO THRIVE Status: Acute Current Visit: No (5) Altered mental status, unspecified SNOMED Code(s): 684598093 Code(s): R41.82 - ALTERED MENTAL STATUS, UNSPECIFIED Status: Acute Current Visit: No Annotation/Comment:: Admit to Observation. - Problem List Review Problem List Initiated/Reviewed/Updated: Yes - Plan Plan:: Continue PT/OT. Continue current care.
[2020-03-02] MEDS: Acetaminophen 325 MG Tab PO PRN (22:34)
--- NOTE | 2020-03-03 08:37 | PCM.PN ---
- General Info Date of Service: 03/03/20 Admission Dx/Problem (Free Text): Patient has had some the left calf pain the last 24 hours. swelling. He's been asking Tylenol for which the nurse states he never asked for any medication. Has no shortness breath, fevers, chills. Son the left leg and that's where he had a stroke. He says it was stiff before. - Patient Data Vitals - Most Recent: Last Vital Signs Temp 96.7 F L 03/02/20 08:00 Pulse 65 03/02/20 08:00 Resp 16 03/02/20 08:00 BP 127/70 03/02/20 08:00 Pulse Ox 100 03/02/20 08:00 Weight - Most Recent: 131 lb 8 oz Med Orders - Current: Current Medications Acetaminophen (Tylenol) 650 mg PO Q4H PRN PRN Reason: Pain (mild 1-3) Last Admin: 03/02/20 22:34 Dose: 650 mg Documented by: - Exam General: Alert, Oriented Lungs: Normal Respiratory Effort Extremities: Other (Left lower leg. He has some very minimal pain to palpation but he states. His calf has no swelling at all.) Sepsis Event Note - Evaluation Sepsis Screening Result: No Definite Risk - Problem List & Annotations (1) CVA (cerebral vascular accident) SNOMED Code(s): 810378163 Code(s): I63.9 - CEREBRAL INFARCTION, UNSPECIFIED Status: Acute Current Visit: Yes (2) Hyponatremia SNOMED Code(s): 70098604 Code(s): E87.1 - HYPO-OSMOLALITY AND HYPONATREMIA Status: Acute Current Visit: Yes (3) HTN (hypertension) SNOMED Code(s): 08251381 Code(s): I10 - ESSENTIAL (PRIMARY) HYPERTENSION Status: Acute Current Visit: Yes (4) Adult failure to thrive syndrome SNOMED Code(s): 520317583 Code(s): R62.7 - ADULT FAILURE TO THRIVE Status: Acute Current Visit: No (5) Altered mental status, unspecified SNOMED Code(s): 852624302 Code(s): R41.82 - ALTERED MENTAL STATUS, UNSPECIFIED Status: Acute Current Visit: No Annotation/Comment:: Admit to Observation. - Problem List Review Problem List Initiated/Reviewed/Updated: Yes - My Orders Last 24 Hours: My Active Orders 03/02/20 22:14 Acetaminophen [TylenoL] 650 mg PO Q4H PRN - Assessment Assessment:: Left calf pain so we'll go ahead and get ultrasound of left calf to rule out DVT. - Plan Plan:: Continue PT/OT. Continue current care.
[2020-03-03] MEDS: Acetaminophen 325 MG Tab PO PRN (09:26)
--- NOTE | 2020-03-03 18:21 | PCM.SN.2 ---
- Free Text/Narrative Note: Ultrasound of left leg preliminary report shows no DVT. Wait for radiology interpretation. This report was given to the patient today.
[2020-03-05] MEDS: Acetaminophen 325 MG Tab PO PRN (03:48)
[2020-03-06] MEDS: Acetaminophen 325 MG Tab PO PRN ×2 (01:51→21:55)
[2020-03-06] MEDS ORDERED: Tuberculin, PPD 5 Units/0.1 ML 1 ML MDV IDERM ONE (20:32)
[2020-03-07] MEDS: Acetaminophen 325 MG Tab PO PRN (02:28)
--- NOTE | 2020-03-07 11:38 | DISCH ---
DISCHARGE DATE: 03/07/2020 HISTORY: Luis is an 79-year-old man from [place] who was admitted to acute care after being found on the floor. He had been discharged from observation the day before. On admission, he was found to be generally extremely weak. He had a significant left footdrop with loss of ambulatory ability. He was found to be significantly hyponatremic and had confusion. His hyponatremia was corrected, and he was discharged to swing bed for further recuperation. Luis continued to get therapy in swing bed and improved steadily such that he was able to walk over 100 feet with a walker. He continued to have a mild footdrop on the left and mild cognitive deficits. By 03/07/2020, he was deemed improved enough for discharge to [facility]. He is sent there in stable condition to continue physical activities. He is on no medications and will have followup as an outpatient on a p.r.n. basis. /[id number] TERESA/ABA
== END 2020-03-07 11:00 | disposition other institution (70) | DRG 57 ==
LOC: FB.MS 11:36
PROVIDERS: ADMIT Family Medicine; ATTEND Family Medicine
DX: I69.30 Unspecified sequelae of cerebral infarction (principal); E87.1 Hypo-osmolality and hyponatremia; R41.89 Other symptoms and signs involving cognitive functions and awareness; R62.7 Adult failure to thrive; R41.82 Altered mental status, unspecified; Z20.828 Contact with and (suspected) exposure to other viral communicable diseases; Z51.5 Encounter for palliative care; I11.0 Hypertensive heart disease with heart failure; I50.9 Heart failure, unspecified
CPT/HCPCS: 36415; 80053; 81001; 82272; 82607; 82728; 83540; 83550; 83880; 85025; 85045; 86580; 93306; 93971-LT; 97110-GP; 97116-GP; 97530-GO; 97530-GP; 97535-GO; A9270-GY; U0002

== ENCOUNTER 2020-05-30 09:12 | Inpatient (IN) | payer MEDICARE ==
--- NOTE | 2020-05-30 09:20 | EDM.PDOC ---
ED HPI GENERAL MEDICAL PROBLEM - General Chief Complaint: Trauma Stated Complaint: 2 FALLS Time Seen by Provider: 05/30/20 09:31 Source of Information: Reports: EMS, EMS Notes Reviewed, Correction Records History Limitations: Reports: Altered Mental Status, Other (dementia) - History of Present Illness INITIAL COMMENTS - FREE TEXT/NARRATIVE: Brought in by EMS from SNF ( [facility]) has had 2 falls in the last 48 hrs : found yesterday at about 1 pm , states did not hit his head and was not brought in Was found this am to have had fall and was picked up , no head injury was noted : so did not report, so was given breakfast then he was checked on in his room and found to have slumped , weak and veering to one side so was sent in for possible stroke symptoms pt noted to have nose bleed and he said he hit his head pt is on Plavix after CVA ( started 05/02/2020) had 2nd dose of COVID VACCINE LAST TUESDAY Onset: Today Onset Date: 05/30/20 Duration: Getting Worse Location: Reports: Head Quality: Reports: Dull, Pressure Severity: Mild Improves with: Reports: None Worsens with: Reports: None Context: Reports: Other (unknown) Treatments COMMUNITY PHARMACIST: Reports: See EMS Report - Related Data Allergies Allergy/AdvReac Type Severity Reaction Status Date / Time No Known Allergies Allergy Verified 02/25/20 15:38 Home Meds: Home Meds Acetaminophen [Tylenol] 650 mg PO Q4H PRN 05/30/20 [History] Aspirin 81 mg PO DAILY 05/30/20 [History] Bisacodyl [Laxative Suppository] 10 mg RECTAL Q72H PRN 05/30/20 [History] Clopidogrel Bisulfate [Plavix] 75 mg PO DAILY 05/30/20 [History] Loperamide [Imodium AD] 2 mg PO ASDIRECTED PRN 05/30/20 [History] Mag Hydrox/Aluminum Hyd/Simeth [Mylanta Maximum Strength Liq] 10 ml PO QID 05/30/20 [History] Magnesium Hydroxide [Milk of Magnesia] 30 ml PO DAILY PRN 05/30/20 [History] Rosuvastatin [Crestor] 40 mg PO DAILY 05/30/20 [History] guaiFENesin 10 ml PO Q4H PRN 05/30/20 [History] Past Medical History - Past Health History Medical/Surgical History: Denies Medical/Surgical History HEENT History: Reports: Impaired Vision Other HEENT History: PT WEARS GLASSES BUT THEY ARE NOT HERE NOW. Cardiovascular History: Reports: Hypertension, Other (See Below) Other Cardiovascular History: Pt is unclear of past medical history but was on metoprolol at one time. PT VOICED THAT THEY STOPPED THE BP MED. Respiratory History: Reports: SOB Other Respiratory History: SOB WITH ACTIVITY WHEN WEAK. Genitourinary History: Reports: Urinary Incontinence Musculoskeletal History: Reports: Arthritis, Back Pain, Chronic, Osteoporosis, Other (See Below) Other Musculoskeletal History: ARTHRITIS IN BACK IN PAST. Neurological History: Reports: TIA, Other (See Below) Other Neuro History: PATIENT STATES "IM CONFUSED". DR. CHRIS QUESTIONS IF PT HAD A LITTLE CVA NOW WITH THIS ADMISSION. Psychiatric History: Reports: Other (See Below) Other Psychiatric History: josy Dermatologic History: Reports: Other (See Below) Other Dermatologic History: PT VOICED DRY SKIN AT TIMES. - Infectious Disease History Infectious Disease History: Reports: Chicken Pox, Measles, Mumps, Shingles Other Infectious Disease History: THINKS HE MIGHT HAVE HAD CHICKEN POX KID - Past Surgical History Head Surgeries/Procedures: Reports: None HEENT Surgical History: Reports: Oral Surgery, Other (See Below) Other HEENT Surgeries/Procedures: ROOT CANAL X2 Cardiovascular Surgical History: Reports: None Respiratory Surgical History: Reports: None GI Surgical History: Reports: Colonoscopy Male Surgical History: Reports: None Neurological Surgical History: Reports: None Musculoskeletal Surgical History: Reports: None Dermatological Surgical History: Reports: None Social & Family History - Family History Family Medical History: No Pertinent Family History - Caffeine Use Caffeine Use: Reports: None Other Caffeine Use: OCCASIONALLY DRINKS COFFEE ED ROS GENERAL - Review of Systems Review Of Systems: See Below Constitutional: Reports: Chills, Malaise, Weakness HEENT: Reports: No Symptoms Respiratory: Denies: Shortness of Breath, Cough Cardiovascular: Reports: Lightheadedness. Denies: Chest Pain, Dyspnea on Exertion Endocrine: Reports: Fatigue GI/Abdominal: Reports: No Symptoms : Reports: Incontinence Musculoskeletal: Reports: Muscle Pain, Muscle Stiffness Skin: Reports: Rash (on scrotum and perineum) Neurological: Reports: Confusion, Dizziness Psychiatric: Reports: No Symptoms Hematologic/Lymphatic: Reports: No Symptoms Immunologic: Reports: No Symptoms - Physical Exam Exam: See Below Exam Limited By: Altered Mental Status General Appearance: WD/WN, No Apparent Distress, Lethargic Eye Exam: Bilateral Eye: EOMI Ears: Normal External Exam Throat/Mouth: Normal Inspection, Normal Lips, Normal Oropharynx, Normal Voice Head Exam: Scalp Swelling, Scalp Abrasions, Scalp Ecchymosis Neck: Supple, Non-Tender Respiratory/Chest: No Respiratory Distress, Lungs Clear Cardiovascular: Normal Peripheral Pulses, Regular Rate, Rhythm GI/Abdominal: Soft, Non-Tender Neuro Exam (Abbreviated): Alert, Oriented, Normal Cognition, Slow to Respond, Abnormal Gait, Other (difficult to assess neuro status of lower extremites ) DTR: 2+: Patella (R), Patella (L) Back Exam: Normal Inspection, Decreased Range of Motion Extremities: Pedal Edema Psychiatric: Normal Mood, Flat Affect Course - Vital Signs Last Recorded V/S: Last Vital Signs Temp 36.4 C 05/30/20 17:25 Pulse 88 05/30/20 17:25 Resp 16 05/30/20 17:25 BP 123/58 L 05/30/20 17:25 Pulse Ox 100 05/30/20 17:25 - Orders/Labs/Meds Orders: Active Orders 24 hr Category Date Time Status Insert Urinary Catheter [OM.PC] Q24H Care 05/30/20 09:30 Ordered CULTURE BLOOD [BC] Stat Lab 05/30/20 09:15 Received Transfuse Platelets [COMM] Stat Oth 05/30/20 10:42 Ordered Labs: Laboratory Tests 05/30/20 05/30/20 05/30/20 Range/Units 09:15 09:15 09:25 WBC 7.4 (3.2-10.1) x10-3/uL RBC 3.47 L (3.90-5.90) x10(6)uL Hgb 10.2 L (12.9-17.7) g/dL Hct 30.8 L (38.3-50.1) % MCV 89.0 (80.8-98.7) fL MCH 29.6 (27.0-33.3) pg MCHC 33.2 (28.7-35.3) g/dL RDW 14.9 (12.4-15.0) % Plt Count 149 (117-477) x10(3)uL MPV 9.2 (6.7-11.0) fL Neut % (Auto) 59.4 (40.3-71.8) % Lymph % (Auto) 25.7 (15.8-45.3) % George % (Auto) 11.8 (5.5-15.2) % Eos % (Auto) 2.5 (0.1-6.8) % Baso % (Auto) 0.6 (0.3-3.8) % Neut # (Auto) 4.4 (1.7-6.9) x10-3/uL Lymph # (Auto) 1.9 (0.5-4.5) x10-3/uL George # (Auto) 0.9 (0.0-1.2) x10-3/uL Eos # (Auto) 0.2 (0.0-0.6) x10-3/uL Baso # (Auto) 0.0 (0.0-0.3) x10-3/uL Sodium (135-145) mmol/L Potassium (3.5-5.3) mmol/L Chloride (100-110) mmol/L Carbon Dioxide (21-32) mmol/L BUN (7-18) mg/dL Creatinine (0.70-1.30) mg/dL Est Cr Clr Drug Dosing Estimated GFR (MDRD) (>60) BUN/Creatinine Ratio (9-20) Glucose (80-116) mg/dL Lactic Acid (0.4-2.0) mmol/L Calcium (8.6-10.2) mg/dL Total Bilirubin (0.1-1.3) mg/dL AST (5-25) IU/L ALT (12-36) U/L Alkaline Phosphatase (56-112) IU/L C-Reactive Protein 1.2 H (0.5-0.9) mg/dL NT-Pro-B Natriuret Pep (<=450) pg/mL Total Protein (6.0-8.0) g/dL Albumin (3.2-4.6) g/dL Globulin g/dL Albumin/Globulin Ratio Urine Color Yellow (YELLOW) Urine Appearance Slightly cloudy (CLEAR) Urine pH 6.5 (5.0-6.5) Ur Specific Dexter 1.010 (1.010-1.025) Urine Protein Negative (NEGATIVE) mg/dL Urine Glucose (UA) Normal (NORMAL) mg/dL Urine Ketones Negative (NEGATIVE) mg/dL Urine Occult Blood Moderate H (NEGATIVE) Urine Nitrite Negative (NEGATIVE) Urine Bilirubin Negative (NEGATIVE) Urine Urobilinogen Normal (NEGATIVE) mg/dL Ur Leukocyte Esterase Negative (NEGATIVE) Urine RBC 0-5 (0-5) Urine WBC 0-5 (0-5) Ur Squamous Epith Cells Occasional (NS,R,O) Urine Bacteria Few H (NS) 05/30/20 05/30/20 05/30/20 Range/Units 09:25 09:25 09:25 WBC (3.2-10.1) x10-3/uL RBC (3.90-5.90) x10(6)uL Hgb (12.9-17.7) g/dL Hct (38.3-50.1) % MCV (80.8-98.7) fL MCH (27.0-33.3) pg MCHC (28.7-35.3) g/dL RDW (12.4-15.0) % Plt Count (117-477) x10(3)uL MPV (6.7-11.0) fL Neut % (Auto) (40.3-71.8) % Lymph % (Auto) (15.8-45.3) % George % (Auto) (5.5-15.2) % Eos % (Auto) (0.1-6.8) % Baso % (Auto) (0.3-3.8) % Neut # (Auto) (1.7-6.9) x10-3/uL Lymph # (Auto) (0.5-4.5) x10-3/uL George # (Auto) (0.0-1.2) x10-3/uL Eos # (Auto) (0.0-0.6) x10-3/uL Baso # (Auto) (0.0-0.3) x10-3/uL Sodium 129 L (135-145) mmol/L Potassium 3.9 (3.5-5.3) mmol/L Chloride 94 L D (100-110) mmol/L Carbon Dioxide 24 (21-32) mmol/L BUN 21 H D (7-18) mg/dL Creatinine 1.2 (0.70-1.30) mg/dL Est Cr Clr Drug Dosing TNP Estimated GFR (MDRD) 58 L (>60) BUN/Creatinine Ratio 17.5 (9-20) Glucose 171 H (80-116) mg/dL Lactic Acid 1.7 (0.4-2.0) mmol/L Calcium 8.2 L (8.6-10.2) mg/dL Total Bilirubin 0.7 (0.1-1.3) mg/dL AST 67 H (5-25) IU/L ALT 79 H D (12-36) U/L Alkaline Phosphatase 108 (56-112) IU/L C-Reactive Protein (0.5-0.9) mg/dL NT-Pro-B Natriuret Pep 720 H (<=450) pg/mL Total Protein 6.2 (6.0-8.0) g/dL Albumin 2.9 L (3.2-4.6) g/dL Globulin 3.3 g/dL Albumin/Globulin Ratio 0.9 Urine Color (YELLOW) Urine Appearance (CLEAR) Urine pH (5.0-6.5) Ur Specific Dexter (1.010-1.025) Urine Protein (NEGATIVE) mg/dL Urine Glucose (UA) (NORMAL) mg/dL Urine Ketones (NEGATIVE) mg/dL Urine Occult Blood (NEGATIVE) Urine Nitrite (NEGATIVE) Urine Bilirubin (NEGATIVE) Urine Urobilinogen (NEGATIVE) mg/dL Ur Leukocyte Esterase (NEGATIVE) Urine RBC (0-5) Urine WBC (0-5) Ur Squamous Epith Cells (NS,R,O) Urine Bacteria (NS) Meds: Medications Discontinued Medications Generic Name Dose Route Start Last Admin Trade Name Freq PRN Reason Stop Dose Admin Acetaminophen 650 mg 05/30/20 11:57 Tylenol PO Q4H PRN analgesia/fever Sodium Chloride 1,000 mls @ 100 mls/hr 05/30/20 09:30 05/30/20 10:20 Normal Saline IV 999 mls/hr ASDIRECTED ANITA Infusion Sodium Chloride 250 mls @ 100 mls/hr 05/30/20 10:45 Normal Saline IV ASDIRECTED ANITA Desmopressin Acetate 12 mcg/ 53 mls @ 106 mls/hr 05/30/20 11:00 05/30/20 11:06 Sodium Chloride IV 05/30/20 11:29 106 mls/hr ONETIME ONE Administration Sodium Chloride 1,000 mls @ 100 mls/hr 05/30/20 11:20 05/30/20 11:18 Normal Saline IV 100 mls/hr ASDIRECTED ANITA Administration Desmopressin Acetate 12 mcg/ 53 mls @ 106 mls/hr 05/30/20 16:45 05/30/20 16:43 Sodium Chloride IV 05/30/20 17:14 106 mls/hr ONETIME ONE Administration Magnesium Hydroxide 30 ml 05/30/20 11:57 Milk Of Magnesia PO BID PRN Constipation Nystatin 10 ml 05/30/20 09:45 05/30/20 14:15 Mycostatin PO 05/30/20 09:46 Not Given ONETIME ONE Nystatin 0 gm 05/30/20 09:46 05/30/20 14:00 Nystop TOP 05/30/20 09:47 15 gm NOW STA Administration - Re-Assessments/Exams Free Text/Narrative Re-Assessment/Exam: 05/30/20 10:55 CT report discussed with radiologist Discussed same with Next of kin, agrees call to be made to [place] to assess possible intervention He did emphasis pt is DNR and wants no heroic measure 05/30/20 10:57 Call made to [place] ( One call ) Discussed with Dr Henao , recommended platelet infusion ( not available ) and DDavp Recommended also to discuss with Neurovascular surgeon Pt had COVID screen on tuesday and had 2nd dose of vaccine given on tuesday05/30/20 11:18 discussed pt with Neuro vascular surgeon and Dr Cifuentes: pt has a bleed that does not meet criteria for surgery . He recommends to give DDavp and rpeat Ct of the head in 6 hrs . If bleed increases and family / next of kin are requesting for surgery then patient can be transferred 05/30/20 12:55 discussed with supervisor reclamation physician, pt to remain in ER till 2nd head CT is done 05/30/20 16:[address] done discussed result with pt and POA Both decided to have surgery done pt given another dose of DDavp 05/30/20 17:33 Called and discussed same with channel installer and [facility] in [place] and requested pt be transfered to the ER in [place] for further evaluation and treatment 05/30/20 17:36 Departure - Departure Time of Disposition: 17:46 Disposition: DC/Tfer to Acute Hospital 02 Condition: Fair Clinical Impression: Subarachnoid hemorrhage, Subarachnoid hemorrhage after traumatic injury without open intracranial wound, with prolonged loss of consciousness and return to pre-existing level of consciousness, CVA (cerebral vascular accident), Hyponatremia - Discharge Information *PRESCRIPTION DRUG MONITORING PROGRAM REVIEWED*: Not Applicable *COPY OF PRESCRIPTION DRUG MONITORING REPORT IN PATIENT CAROLYNN: Not Applicable Sepsis Event Note (ED) - Focused Exam Vital Signs: Vital Signs Temp Pulse Resp BP Pulse Ox 05/30/20 10:20 66 65/40 L 05/30/20 09:12 36.1 C 82 21 H 161/121 H 100 - My Orders Last 24 Hours: My Active Orders 05/30/20 09:15 CULTURE BLOOD [BC] Stat 05/30/20 09:30 Insert Urinary Catheter [OM.PC] Q24H 05/30/20 10:42 Transfuse Platelets [COMM] Stat - Assessment/Plan Last 24 Hours: My Active Orders 05/30/20 09:15 CULTURE BLOOD [BC] Stat 05/30/20 09:30 Insert Urinary Catheter [OM.PC] Q24H 05/30/20 10:42 Transfuse Platelets [COMM] Stat
[2020-05-30] MEDS: Sodium Chloride 0.9% 1,000 ML IV SCH ×2 (09:41→11:18)
--- NOTE | 2020-05-30 10:34 | CT ---
INDICATION: Fell this a.m. CT HEAD WITHOUT CONTRAST: Spiral 3.75 mm axial sections were obtained through the brain without contrast with sagittal and coronal reconstructions and axial reconstructions 05/29/20 and compared with 02/21/20. Total exam DLP was 1528.47 mGy-cm. Subarachnoid hemorrhage is noted extending from the base of the brain on the left at the temporal lobe superiorly along the left cerebellum near the midline and then into the midline superiorly into the major fissure and extending into the convexity. No significant shift of midline structures was noted. Prominent ventricles are again noted compatible with central atrophy. There is evidence of scalp hematoma extending over the frontal area into the parietal area on the right relatively diffusely. The orbits appear to be intact. Retention cysts are noted in the left maxillary antrum with paranasal sinuses otherwise fairly well aerated - mastoid air cells also well aerated. No cranial fracture site was noted. Calcifications are noted in the internal carotid and vertebral arteries. Low density abnormality is noted minimally periventricular compatible with minimal microvascular disease. IMPRESSION: 1. Acute finding of subarachnoid hemorrhage extending from the medial aspect of the left temporal lobe into the area of the cerebellum superiorly into the major interhemispheric fissure to the convexity measuring approximately 7 mm to 8 mm in maximum thickness in the major fissure. 2. Scalp hematoma. 3. Cerebrovascular disease with central atrophy and minimal microvascular disease type changes. 4. Relatively mild cortical atrophy again noted. Report was called to Dr. Shelton at 1000 hours. [facility]
[2020-05-30] MEDS ORDERED: Desmopressin 40 MCG/10 ML ML SUBCUT ONE ×2 (10:40→11:00)
--- NOTE | 2020-05-30 10:40 | CR ---
INDICATION: Diaphoresis, fall. CHEST, ONE VIEW: AP portable upright views of the chest with two images were obtained 05/30/20 and compared with 02/22/20. The heart did not appear grossly enlarged but was somewhat prominent. There is suggestion of mild interstitial prominence suggesting a mild degree of pulmonary vascular congestion. However, a definite active infiltrate or effusion was not identified. Overlying EKG leads are noted. Overlying snap noted. IMPRESSION: Question of mild degree of pulmonary vascular congestion although heart size does not appear grossly enlarged. The congestion may be on the basis of an acute myocardial event, fluid overload, renal failure, etc. MTDD
[2020-05-30] MEDS ORDERED: Sodium Chloride 0.9% 250 ML IV SCH (10:45)
[2020-05-30] MEDS ORDERED: Desmopressin 40 MCG/10 ML ML IV ONE (11:00)
[2020-05-30] MEDS: SODIUM CHLORIDE 0.9% IV ONE ×2 (11:06→16:43)
[2020-05-30] MEDS ORDERED: SODIUM CHLORIDE 0.9% IV ONE ×2 (11:06→16:43)
[2020-05-30] MEDS ORDERED: DESMOPRESSIN IV ONE ×2 (11:06→16:43)
[2020-05-30] MEDS: DESMOPRESSIN IV ONE ×2 (11:06→16:43)
[2020-05-30] MEDS ORDERED: Magnesium Hydroxide 400 MG/5 ML Susp 30 ML Cup PO PRN (11:57)
[2020-05-30] MEDS ORDERED: Acetaminophen 325 MG Tab PO PRN (11:57)
[2020-05-30] MEDS: Nystatin Topical Powder 15 GM Bottle TOP STA (14:00)
[2020-05-30] MEDS: Nystatin Susp 100,000 Unit/ML 5 ML UD Cup PO ONE (14:15)
[2020-05-30] MEDS ORDERED: Desmopressin 40 MCG/10 ML ML IV SCH (16:30)
--- NOTE | 2020-05-30 17:14 | CT ---
CT HEAD WITHOUT CONTRAST INDICATION: Followup subarachnoid hemorrhage. Spiral 3.75 mm axial sections were obtained through the brain without contrast with sagittal, coronal, and axial reconstructions 05/30/2020, 1603 hours, and compared with study from the same date at 0954 hours. Total exam DLP was 4687.18 mGy-cm. The relatively higher DLP is due to repeat imaging due to motion. The amount of subarachnoid hemorrhage has increased with the area of bleeding in the interhemispheric fissure posteriorly now measuring approximately 18 mm compared with 9.9 mm at the same location on the previous study--axial images 33 and 36 on the current study and older study respectively. The amount of hemorrhage is increased up to the convexity and also significantly increased into the area of the cerebellum but appears mostly stable at the temporal lobe. No other change or new acute process was suggested. IMPRESSION: Increasing subarachnoid hemorrhage. Report was called to Dr. Shelton at 1625 hours, 05/30/2020. [facility]ITAL[facility]ilys
== END 2020-05-30 17:46 | disposition other institution (70) | DRG 83 ==
LOC: FB.ED 09:12 → FB.MS 11:57
PROVIDERS: ADMIT Family Medicine; ATTEND Student in an Organized Health Care Education/Training Program
DX: S06.6X9A Traumatic subarachnoid hemorrhage with loss of consciousness of unspecified duration, initial encounter (principal); W19.XXXA Unspecified fall, initial encounter; E87.1 Hypo-osmolality and hyponatremia; R40.2422 Glasgow coma scale score 9-12, at arrival to emergency department; H54.7 Unspecified visual loss; I10 Essential (primary) hypertension; R32 Unspecified urinary incontinence; M19.90 Unspecified osteoarthritis, unspecified site; M54.9 Dorsalgia, unspecified; G89.29 Other chronic pain; M81.0 Age-related osteoporosis without current pathological fracture; Z86.73 Personal history of transient ischemic attack (TIA), and cerebral infarction without residual deficits; Z79.02 Long term (current) use of antithrombotics/antiplatelets; R06.02 Shortness of breath; Z79.82 Long term (current) use of aspirin; Z79.899 Other long term (current) drug therapy; Z91.81 History of falling; W01.10XA Fall on same level from slipping, tripping and stumbling with subsequent striking against unspecified object, initial encounter
CPT/HCPCS: 36415; 70450; 71045; 80048; 80053; 81001; 83605; 83880; 85025; 86140; 87040; 96365; 99285-25; J2597; J7030